=== PATIENT | female | born 1950 | race Caucasian/White ===

== ENCOUNTER 2018-04-03 00:22 | Outpatient (CLI) | payer MEDICARE, MEDICAID, SELFPAY ==
--- NOTE | 2018-04-03 12:00 | DI.MAMMO_ITS ---
SYMPTOM/DIAGNOSIS: SCREENING, Z12.31 MAMMOGRAMS: Mammograms were interpreted according to the usual protocol including computer analysis with CAD system, tomosynthesis and C view imaging. The breast tissue is of moderate radiodensity. A faint area of asymmetric increased density is noted in the upper outer quadrant of the left breast. There is no definite mass. There are no suspicious calcifications. There has been no significant interval change when compared with prior images. SUMMARY: No evidence of malignancy, category 1. Yearly screening mammography is recommended. Breast density, Category B. MQSA ASSESSMENT OF FINDINGS: Negative. Category 1. Patient will receive a letter notifying them of these results. BI-RADS category B. There are scattered areas of fibroglandular density.
== END 2018-04-03 00:42 ==
PROVIDERS: PCP Family Medicine; Visit Provider Family Medicine
DX: Z12.31 Encounter for screening mammogram for malignant neoplasm of breast (principal)
CPT/HCPCS: 77063; 77067

== ENCOUNTER 2018-08-11 08:00 | Day surgery (SDC) | payer MEDICARE, MEDICAID, SELFPAY ==
--- NOTE | 2018-08-10 17:24 | W.PIPPEYE ---
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 She notes significant difficulty with her vision at night. She notes significant foggy vision OU. She was noted to have bilateral nuclear and cortical cataracts. The option of cataract surgery was offered to the patient and she wished to proceed. NOTE: The Chief Complaint, HPI, Past Medical History, Past Surgical History, Family History, Social History, Medications, and complete Ophthalmic Exam with detailed Assessment and Plan have already been documented in the patient's outpatient ophthalmic record and are not covered again in detail here. [facility] Medical History Anatomical narrow angle, left eye (Acute) Cortical cataract of left eye (Acute) Nuclear sclerotic cataract of left eye (Acute) Surgical History Biopsy of breast (~1973) section Hysterectomy, Laproscopic Family History Mother Essential hypertension Heart disease Hyperlipidemia Stroke Father Heart disease Sister Essential hypertension Depression Hyperlipidemia Brother Essential hypertension Heart disease Hyperlipidemia Grandfather No problems noted. Grandfather No problems noted. Grandmother No problems noted. Grandmother No problems noted. niece No problems noted. Niece Neoplasm Sister No problems noted. Sister No problems noted. Sister Stroke Social History household members: other details: 2 highest education level completed: high school graduate current occupational status: retired pets and animals: No what type of physical activity do you participate in: walking frequency: 3-4 times per week duration: 30-45 minutes/day Smoking and Tabacco status: Former Tobacco Use quit date: 06/03/10 Pasive smoking exposure: Yes alcohol intake: current alcohol intake frequency: a few times a month substance use type: does not use tanvir/rastafari: Caodaism special tanvir needs: No Meds Home Medications Medication Instructions Recorded Confirmed Type celecoxib 200 mg capsule 200 mg PO DAILY PRN #90 cap 06/10/18 08/06/18 Rx oxybutynin chloride 5 mg PO HS 08/06/18 08/06/18 History Allergies Allergy/AdvReac Type Severity Reaction Status Date / Time No Known Allergies Allergy Unverified 08/06/18 16:24 Exam OCULAR EXAM:: Most recent ocular examination revealed corrected visual acuity of 20/25 OD, 20/40 OS. Intraocular pressure is 16 OD, 15 OS. Extraocular motility is normal. Pupils equal, round, and reactive without afferent pupillary defect slit-lamp examination is significant for very narrow angles OU with a shallow anterior chambers. 2+ nuclear/cortical cataract OU. Funduscopic examination shows disc cupping of 0.25 OD 0.3 OS with good color. The optic nerves have good perfusion and normal color. The retinal vasculature is normal without significant tortuosity or abnormality. The maculas are normal in appearance with normal contour and foveal reflex appropriate for age. The peripheral retina and vitreous are normal. BRIGHTNESS ACUITY TESTING (BAT):: issued a brightness acuity testing of the left eye off is 20/40. Low is 20/25. Medium is 20/25. High is 20/40. Assessment and Plan (1) Nuclear sclerotic cataract of left eye: Current visit: No Status: Acute Assessment: Visually significant cataract, left eye. Plan: Cataract extraction with intraocular lens implantation, left eye (2) Cortical cataract of left eye: Current visit: No Status: Acute Assessment: Visually significant cataract, left eye. Plan: Cataract extraction with intraocular lens implantation, left eye (3) Anatomical narrow angle, left eye: Current visit: No Status: Acute Assessment: High hyperopia with narrow anterior chamber angle, left eye, with shallow anterior chamber Plan: Preop treatment with IV mannitol Note: NOTE:: The details of the planned surgery, including the risks, indications,limitations,expectations,outcome and possible complications were explained to the patient. The patient understands the complications including, but not limited to: infection, hemorrhage, posterior dislocation of the lens or nuclear fragments which may require the intervention of a vitreoretinal surgeon, possible loss of the eye, or from anesthetic complications. The patient has been made aware of the option of not having surgery, that vision following surgery may not be equal to that prior to surgery, and that the planned surgery may not achieve the intended results. Following this discussion, which the patient appeared to understand, the patient wishes to proceed with cataract surgery with lens implantation of the affected eye to improve and maximize vision.
--- NOTE | 2018-08-10 18:26 | W.PM.DSUDISC ---
Discharge Plan Disposition Patient Disposition: HOME Condition: Stable Discharge Details Attending Provider: Irvin Baxter Primary Care Provider: Fredy Starks Home Meds and New Rx's Prescriptions: No Action celecoxib 200 mg capsule 200 mg PO DAILY PRN (Reason: pain) Qty: 90 RF: 4 oxybutynin chloride 5 MG tablet 5 mg PO HS RF: 0 Discharge Instructions Stand Alone Forms: Post-op Topical Cataract, Joyce Jackson (DSU) Discharge Orders Discharge Orders: Discharge Order (Routine); Ordered 08/11/18 Ordered By: Irvin Baxter DS: Diagnosis Discharge Diagnosis (1) Status post cataract extraction and insertion of intraocular lens of left eye: Status: Chronic
[2018-08-11 08:16] VITALS: BP 132/85; PULSE 72; RESP 16; TEMP 36.5; O2SAT 98
[2018-08-11] MEDS: Tetracaine 0.5% 4 ML BTL OS ×4 (08:26→10:17)
[2018-08-11] MEDS: Tropicam./Phenyleph. (1/2.5%) 5 ML BTL OS ×3 (08:26→10:10)
[2018-08-11] MEDS: Povidone-Iodine Ophth 30 ML BTL ×2 (10:17→10:47)
[2018-08-11] MEDS: Lidocaine 2% Jelly 6 ML SYR (10:17)
[2018-08-11] MEDS: Balanced Salt Soln.-PLUS 500 ML BAG (10:23)
[2018-08-11] MEDS: Lidocaine 1% Pres-Free 5 ML VIAL (10:23)
[2018-08-11] MEDS: Duovisc Viscoelastic System EACH 1 EACH (10:24)
[2018-08-11] MEDS: Lactated Ringers 1,000 ML 30 ML IV (10:46)
--- NOTE | 2018-08-11 10:56 | W.PM.OP ---
Date of service: 08/11/18 Time of Service: 10:56 Operative Note PRE-OP DIAGNOSIS: Cataract, left eye POST-OP DIAGNOSIS: same PROCEDURE: Cataract extraction using phacoemulsification with intraocular lens implant, left eye SURGEON: Irvin Baxter ANESTHESIA: MAC and local (sub-tenon's anesthetic infiltration) PATHOLOGY: none sent COMPLICATIONS: None Patient was transported to: same day Patient's condition: stable Implants: Rocky and Rocky Vision / [employer] Tecnis ZCB00 Indications: Progressive decreased vision due to cataract, left eye Procedure Description: CATARACT SURGERY OPERATIVE REPORT PREOPERATIVE DIAGNOSIS: Nuclear/cortical cataract, left eye Short axial length, high hyperopia, shallow anterior chamber, narrow angles, left eye POSTOPERATIVE DIAGNOSIS: Same OPERATION: Cataract extraction using phacoemulsification with posterior chamber intraocular lens implant, left eye. IOL: IOL Distributed Generation Project Manager/Model: J&J Vision / SANCHEZ Tecnis ZCB00 IOL Power: + 30.5 diopters IOL Serial Number: [id number] Optic Diameter: 6.0mm Haptic/Overall Diameter: 13.0mm PHACO INFO: Raymond GigaSpacesurion Vision System with OZil and Active Fluidics Cumulative Dispersed Energy (CDE): 5.86 seconds SURGEON: Irvin Baxter MD, CHRIS ANESTHESIA: Monitored Anesthesia Care (MAC), with local sub-tenon's anesthetic infiltration COMPLICATIONS: None SPECIMENS: None INDICATIONS FOR PROCEDURE: Patient is a 68-year-old lady with history of high hyperopia who has developed significant nuclear and cortical cataracts in both eyes. She has short axial length with narrow angles and shallow anterior chamber. The option of cataract surgery was offered to the patient and she wished to proceed. She was treated preoperatively with 30 g of mannitol IV PROCEDURE: The correct surgical eye was identified and marked as the left eye and the pupil was dilated in the preoperative area using mydriatics and cycloplegics. The dilated pupil size was 7.0 mm. Mannitol 30 g in a 20% solution was administered IV approximately 30 minutes prior to surgery. Oral sedation was administered in the form of an Imprimis MKO Melt (midazolam 3mg/ketamine 25mg/ondansetron 2mg). The patient was brought to the operating room where cardiopulmonary monitoring was instituted and surgical time-out was performed, confirming the correct operative eye and IOL power. Topical anesthesia was administered and ophthalmic povidone-iodine 5% was instilled into the conjunctival fornices. Lidocaine gel was applied to the cornea and the aldo-ocular area was prepped with Betadine 10% solution and draped in the usual sterile fashion for intraocular surgery, including an aperture drape. A Tegaderm transparent film dressing was cut in half and used to cover the lashes and lid margins. Care was taken to sequester the lashes and lid margins under the Tegaderm dressing. A lid speculum was placed between the lids of the operative eye and the Julianna-Victor Hugo operating microscope was maneuvered into position. Parth scissors were then used to make a conjunctival buttonhole approximately 6mm posterior to the limbus in the inferonasal quadrant. Blunt dissection was carried out to expose bare sclera, and a blunt-tipped sub-tenon?s anesthesia cannula was introduced and passed posteriorly along the globe where non-preserved plain lidocaine was injected into posterior sub-Tenon?s space. A sideport knife was used to make a paracentesis port superior/superiortemporal, and the anterior chamber was filled with Viscoat. A 2.4mm keratome knife was used to create a half-thickness groove at the limbus and then to construct a three-plane near-clear corneal tunnel extending 2.0mm into clear cornea in the temporal position. . A flap was raised on the anterior capsule and capsulorhexis forceps were used to complete a continuous curvilinear capsulorhexis of 5.0 mm. Balanced salt solution was then used to perform cortical cleaving hydrodissection and nuclear hydrodelineation until the lens could be freely rotated within the capsular bag. The lens nucleus was then disassembled and removed within the capsular bag and iris plane using phacoemulsification. Residual cortical material was removed using the 45-degree angled silicone I/A tip with 0.3mm port. The posterior capsule was carefully polished to remove as much residual lens epithelial cells as safely possible. There was some adherent cortical strands nasally and superiorly which could not be removed even with polishing. The capsular bag was then inflated and the anterior chamber deepened with Provisc. The lens implant described above was inserted into the capsular bag using the SANCHEZ [place] Injector. A Kuglen hook was used to dial the IOL into position. Residual viscoelastic was then removed first from posterior to the IOL, then from the anterior chamber using the I/A handpiece. The lens implant was noted to center nicely within the capsular bag. The incisions were stromally hydrated, and the anterior chamber was reformed using BSS. Then 0.4cc of moxifloxacin 1.5mg/ml were injected into the capsular bag and anterior chamber. The incisions were checked with a Weck spear and found to be secure. Several drops of ophthalmic povidone-iodine 5% were then applied to the eye followed by two drops of Imprimis combination moxifloxacin/dexamethasone solution. The drapes were removed and a clear plastic protective eye shield was placed over the eye. The patient was then returned to Same Day Surgery in stable condition.
--- NOTE | 2018-08-11 11:00 | ROE_ITS ---
Date of service: 08/11/18 Time of Service: 10:56 Operative Note PRE-OP DIAGNOSIS: Cataract, left eye POST-OP DIAGNOSIS: same PROCEDURE: Cataract extraction using phacoemulsification with intraocular lens implant, left eye SURGEON: Irvin Baxter ANESTHESIA: MAC and local (sub-tenon's anesthetic infiltration) PATHOLOGY: none sent COMPLICATIONS: None Patient was transported to: same day Patient's condition: stable Implants: Rocky and Rocky Vision / [employer] Tecnis ZCB00 Indications: Progressive decreased vision due to cataract, left eye Procedure Description: CATARACT SURGERY OPERATIVE REPORT PREOPERATIVE DIAGNOSIS: Nuclear/cortical cataract, left eye Short axial length, high hyperopia, shallow anterior chamber, narrow angles, left eye POSTOPERATIVE DIAGNOSIS: Same OPERATION: Cataract extraction using phacoemulsification with posterior chamber intraocular lens implant, left eye. IOL: IOL Supervisor Metalizing/Model: J&J Vision / SANCHEZ Tecnis ZCB00 IOL Power: + 30.5 diopters IOL Serial Number: [id number] Optic Diameter: 6.0mm Haptic/Overall Diameter: 13.0mm PHACO INFO: Raymond Axial Biotechurion Vision System with OZil and Active Fluidics Cumulative Dispersed Energy (CDE): 5.86 seconds SURGEON: Irvin Baxter MD, CHRIS ANESTHESIA: Monitored Anesthesia Care (MAC), with local sub-tenon's anesthetic infiltration COMPLICATIONS: None SPECIMENS: None INDICATIONS FOR PROCEDURE: Patient is a 68-year-old lady with history of high hyperopia who has developed significant nuclear and cortical cataracts in both eyes. She has short axial length with narrow angles and shallow anterior chamber. The option of cataract surgery was offered to the patient and she wished to proceed. She was treated preoperatively with 30 g of mannitol IV PROCEDURE: The correct surgical eye was identified and marked as the left eye and the pupil was dilated in the preoperative area using mydriatics and cycloplegics. The dilated pupil size was 7.0 mm. Mannitol 30 g in a 20% solution was administered IV approximately 30 minutes prior to surgery. Oral sedation was administered in the form of an Imprimis MKO Melt (midazolam 3mg/ketamine 25mg/ondansetron 2mg). The patient was brought to the operating room where cardiopulmonary monitoring was instituted and surgical time-out was performed, confirming the correct operative eye and IOL power. Topical anesthesia was administered and ophthalmic povidone-iodine 5% was instilled into the conjunctival fornices. Lidocaine gel was applied to the cornea and the aldo-ocular area was prepped with Betadine 10% solution and draped in the usual sterile fashion for intraocular surgery, including an aperture drape. A Tegaderm transparent film dressing was cut in half and used to cover the lashes and lid margins. Care was taken to sequester the lashes and lid margins under the Tegaderm dressing. A lid speculum was placed between the lids of the operative eye and the Juilanna-Victor Hugo operating microscope was maneuvered into position. Parth scissors were then used to make a conjunctival buttonhole approximately 6mm posterior to the limbus in the inferonasal quadrant. Blunt dissection was carried out to expose bare sclera, and a blunt-tipped sub-tenon?s anesthesia cannula was introduced and passed posteriorly along the globe where non- preserved plain lidocaine was injected into posterior sub-Tenon?s space. A sideport knife was used to make a paracentesis port superior/superiortemporal, and the anterior chamber was filled with Viscoat. A 2.4mm keratome knife was used to create a half-thickness groove at the limbus and then to construct a three-plane near-clear corneal tunnel extending 2.0mm into clear cornea in the temporal position. . A flap was raised on the anterior capsule and capsulorhexis forceps were used to complete a continuous curvilinear capsulorhexis of 5.0 mm. Balanced salt solution was then used to perform cortical cleaving hydrodissection and nuclear hydrodelineation until the lens could be freely rotated within the capsular bag. The lens nucleus was then disassembled and removed within the capsular bag and iris plane using phacoemulsification. Residual cortical material was removed using the 45-degree angled silicone I/A tip with 0.3mm port. The posterior capsule was carefully polished to remove as much residual lens epithelial cells as safely possible. There was some adherent cortical strands nasally and superiorly which could not be removed even with polishing. The capsular bag was then inflated and the anterior chamber deepened with Provisc. The lens implant described above was inserted into the capsular bag using the SANCHEZ [place] Injector. A Kuglen hook was used to dial the IOL in to position. Residual viscoelastic was then removed first from posterior to the IOL, then from the anterior chamber using the I/A handpiece. The lens implant was noted to center nicely within the capsular bag. The incisions were stromally hydrated, and the anterior chamber was reformed using BSS. Then 0.4cc of moxifloxacin 1.5mg/ml were injected into the capsular bag and anterior chamber. The incisions were checked with a Weck spear and found to be secure. Several drops of ophthalmic povidone-iodine 5% were then applied to the eye followed by two drops of Imprimis combination moxifloxacin/dexamethasone solution. The drapes were removed and a clear plastic protective eye shield was placed over the eye. The patient was then returned to Same Day Surgery in stable condition.
[2018-08-11 11:25] VITALS: BP 144/80; PULSE 75; RESP 16; TEMP 36.5; O2SAT 95
== END 2018-08-11 11:30 | disposition home or self-care (01) ==
LOC: SUR 08:00
PROVIDERS: PCP Family Medicine; Visit Provider Ophthalmology
PROC: (CPT 66984; principal; 2018-08-11 11:15)
DX: H25.812 Combined forms of age-related cataract, left eye (principal); H52.02 Hypermetropia, left eye; H40.032 Anatomical narrow angle, left eye
CPT/HCPCS: 66984; V2632

== ENCOUNTER 2018-08-25 07:36 | Day surgery (SDC) | payer MEDICARE, MEDICAID, SELFPAY ==
--- NOTE | 2018-08-24 16:46 | W.PIPPEYE ---
History of Present Illness Chief Complaint: Progressive decreased vision, right eye Narrative: The patient is a 68-year-old lady with history of high hyperopia with narrow angles and cataracts. She presented with complaints of progressive decreased vision in both eyes at both distance and near. She notes glare and foggy vision. She was noted to have moderate nuclear and cortical cataracts with shallow anterior chambers and narrow angles. She underwent cataract surgery in the left eye on 08/11/2018, treated with preoperative mannitol. Postoperatively, she has regained uncorrected vision of 20/30 in the right eye, correctable to 20/20. She now presents for cataract surgery in the right eye. NOTE: The Chief Complaint, HPI, Past Medical History, Past Surgical History, Family History, Social History, Medications, and complete Ophthalmic Exam with detailed Assessment and Plan have already been documented in the patient's outpatient ophthalmic record and are not covered again in detail here. PFSH Medical History Anatomical narrow angle, left eye (Resolved) Cortical cataract of left eye (Resolved) Nuclear sclerotic cataract of left eye (Resolved) Surgical History Status post cataract extraction and insertion of intraocular lens of left eye (Chronic 08/11/18) Biopsy of breast (~1973) section Hysterectomy, Laproscopic Family History Mother Essential hypertension Heart disease Hyperlipidemia Stroke Father Heart disease Sister Essential hypertension Depression Hyperlipidemia Brother Essential hypertension Heart disease Hyperlipidemia Grandfather No problems noted. Grandfather No problems noted. Grandmother No problems noted. Grandmother No problems noted. niece No problems noted. Niece Neoplasm Sister No problems noted. Sister No problems noted. Sister Stroke Social History Smoking/Tobacco Use Status: Former Tobacco Use Quit Date: 06/03/10 Alcohol Intake: current Alcohol Intake frequency: a few times a month Drug use: Never Substance use type: does not use Household members: other Details: 2 Pets and animals: No What type of physical activity do you participate in: walking Duration: 30-45 minutes/day Frequency: 3-4 times per week Kelsie/Confucianism: Uatsdin Special kelsie needs: No Meds Home Medications Medication Instructions Recorded Confirmed Type celecoxib 200 mg capsule 200 mg PO DAILY PRN #90 cap 06/10/18 08/06/18 Rx oxybutynin chloride 5 mg PO HS 08/06/18 08/06/18 History Allergies Allergy/AdvReac Type Severity Reaction Status Date / Time No Known Allergies Allergy Unverified 08/06/18 16:24 Exam OCULAR EXAM:: Most recent ocular examination is significant for corrected visual acuity of 20/30 OD, 20/20 OS. Pupils equal, round, and reactive without afferent pupillary defect extraocular motility is normal, intraocular pressure is 16 OD, 15 OS. Slit-lamp examination shows shallow anterior chamber with very narrow angles in the right eye. 2+ nuclear with 2+ cortical cataract is present OD. In the left eye there is a well-positioned PCIOL, with some residual posterior capsular plaque nasally. Funduscopic examination reveals disc cupping of 0.25 OD 0.3 OS with normal vessels. The vessels, macula, peripheral retina and vitreous are normal OU. BRIGHTNESS ACUITY TESTING (BAT):: Brightness acuity testing of the right eye off is 20/25. Low is 20/25. Medium is 20/30. High is 20/40. Assessment and Plan (1) Cortical cataract of right eye: Current visit: No Status: Acute Assessment: Visually significant cataract, right eye. Plan: Cataract extraction with intraocular lens implantation, right eye (2) Nuclear sclerotic cataract of right eye: Current visit: No Status: Acute Assessment: Visually significant cataract, right eye. Plan: Cataract extraction with intraocular lens implantation, right eye Note: NOTE:: The details of the planned surgery, including the risks, indications,limitations,expectations,outcome and possible complications were explained to the patient. The patient understands the complications including, but not limited to: infection, hemorrhage, posterior dislocation of the lens or nuclear fragments which may require the intervention of a vitreoretinal surgeon, possible loss of the eye, or from anesthetic complications. The patient has been made aware of the option of not having surgery, that vision following surgery may not be equal to that prior to surgery, and that the planned surgery may not achieve the intended results. Following this discussion, which the patient appeared to understand, the patient wishes to proceed with cataract surgery with lens implantation of the affected eye to improve and maximize vision.
--- NOTE | 2018-08-24 19:37 | W.PM.DSUDISC ---
Discharge Plan Disposition Patient Disposition: HOME Condition: Stable Discharge Details Attending Provider: Irvin Baxter Primary Care Provider: Fredy Starks Home Meds and New Rx's Prescriptions: No Action celecoxib 200 mg capsule 200 mg PO DAILY PRN (Reason: pain) Qty: 90 RF: 4 oxybutynin chloride 5 MG tablet 5 mg PO HS RF: 0 Discharge Instructions Stand Alone Forms: Post-op Topical Cataract, Joyce Jackson (DSU) Discharge Orders Discharge Orders: Discharge Order (Routine); Ordered 08/25/18 Ordered By: Irvin Baxter DS: Diagnosis Discharge Diagnosis (1) Cortical cataract of right eye: Status: Resolved (2) Nuclear sclerotic cataract of right eye: Status: Resolved (3) Status post cataract extraction and insertion of intraocular lens of right eye: Status: Chronic
--- NOTE | 2018-08-24 19:39 | W.PM.OP ---
Date of service: 08/25/18 Time of Service: 09:58 Operative Note PRE-OP DIAGNOSIS: Cataract, right eye PROCEDURE: Cataract extraction using phacoemulsification with intraocular lens implant, right eye SURGEON: Irvin Baxter ANESTHESIA: MAC and local (sub-tenon's anesthetic infiltration) ESTIMATED BLOOD LOSS: 0 PATHOLOGY: none sent COMPLICATIONS: None Patient was transported to: same day Patient's condition: stable Implants: [employer] / [employer] Tecnis ZCB00 intraocular lens Indications: Progressive decreased vision due to cataract, right eye Procedure Description: CATARACT SURGERY OPERATIVE REPORT PREOPERATIVE DIAGNOSIS: Nuclear/cortical cataract, right eye Short axial length, high hyperopia, shallow anterior chamber, narrow angles, right eye POSTOPERATIVE DIAGNOSIS: Same OPERATION: Cataract extraction using phacoemulsification with posterior chamber intraocular lens implant, right eye. IOL: IOL Office Assistance/Model: [employer] / SANCHEZ Tecnis ZCB00 IOL Power: + 29.0 diopters IOL Serial Number: [id number] Optic Diameter: 6.0mm Haptic/Overall Diameter: 13.0mm PHACO INFO: Raymond Telirisurion Vision System with OZil and Active [employer]uidics Cumulative Dispersed Energy (CDE): 4.9 seconds SURGEON: Irvin Baxter MD, CHRIS ANESTHESIA: Monitored Anesthesia Care (MAC), with local sub-tenon's anesthetic infiltration COMPLICATIONS: None SPECIMENS: None INDICATIONS FOR PROCEDURE: The patient is a 68-year old lady with history of high hyperopia with short axial length and narrow anterior chamber angles who has developed symptomatic bilateral nuclear and cortical cataracts. She was significantly symptomatic that she desired cataract surgery and attempt to improve and maximize her vision. She underwent cataract surgery in the left eye on 08/11/2018, and has done well postoperatively. She now has significant anisometropia and presents for removal of symptomatic cataract in the right eye. Preoperatively, she was treated with mannitol 30 g IV to reduce vitreous volume and deep in the anterior chamber. PROCEDURE: The correct surgical eye was identified and marked as the right eye and the pupil was dilated in the preoperative area using mydriatics and cycloplegics. The dilated pupil size was 6.5 mm. Oral sedation was administered in the form of an Imprimis MKO Melt (midazolam 3mg/ketamine 25mg/ondansetron 2mg). The patient was brought to the operating room where cardiopulmonary monitoring was instituted and surgical time-out was performed, confirming the correct operative eye and IOL power. Topical anesthesia was administered and ophthalmic povidone-iodine 5% was instilled into the conjunctival fornices. Lidocaine gel was applied to the cornea and the aldo-ocular area was prepped with Betadine 10% solution and draped in the usual sterile fashion for intraocular surgery, including an aperture drape. A Tegaderm transparent film dressing was cut in half and used to cover the lashes and lid margins. Care was taken to sequester the lashes and lid margins under the Tegaderm dressing. A lid speculum was placed between the lids of the operative eye and the [facility] [employer] operating microscope was maneuvered into position. Parth scissors were then used to make a conjunctival buttonhole approximately 6mm posterior to the limbus in the inferonasal quadrant. Blunt dissection was carried out to expose bare sclera, and a blunt-tipped sub-tenon?s anesthesia cannula was introduced and passed posteriorly along the globe where non-preserved plain lidocaine was injected into posterior sub-Tenon?s space. A sideport knife was used to make a paracentesis port inferiortemporally, and the anterior chamber was filled with Viscoat. A 2.4mm keratome knife was used to create a half-thickness groove at the limbus and then to construct a three-plane near-clear corneal tunnel extending 2.0mm into clear cornea in the superiortemporal position. . A flap was raised on the anterior capsule and capsulorhexis forceps were used to complete a continuous curvilinear capsulorhexis of 5.0 mm. The capsule was noted to be quite thin with a shallow anterior chamber. Balanced salt solution was then used to perform cortical cleaving hydrodissection and nuclear hydrodelineation until the lens could be freely rotated within the capsular bag. The lens nucleus was then disassembled and removed within the capsular bag and iris plane using phacoemulsification. Residual cortical material was removed using the I/A handpiece. The posterior capsule was carefully polished to remove as much residual lens epithelial cells as safely possible. There were some residual adherent cortical strands which could not be safely removed. The capsular bag was then inflated and the anterior chamber deepened with Provisc. The lens implant described above was inserted into the capsular bag using the SANCHEZ [place] Injector. A Kuglen hook was used to dial the IOL into position. Residual viscoelastic was then removed first from posterior to the IOL, then from the anterior chamber using the I/A handpiece. The lens implant was noted to center nicely within the capsular bag. The incisions were stromally hydrated, and the anterior chamber was reformed using BSS. Then 0.4cc of moxifloxacin 1.5mg/ml were injected into the capsular bag and anterior chamber. The incisions were checked with a Weck spear and found to be secure. Several drops of ophthalmic povidone-iodine 5% were then applied to the eye followed by two drops of Imprimis combination moxifloxacin/dexamethasone solution. The drapes were removed and a clear plastic protective eye shield was placed over the eye. The patient was then returned to [facility] in stable condition.
[2018-08-25 07:56] VITALS: BP 165/87; PULSE 74; RESP 16; TEMP 36.4; O2SAT 16
[2018-08-25] MEDS: Tropicam./Phenyleph. (1/2.5%) 5 ML BTL OD ×3 (08:14→08:28)
[2018-08-25] MEDS: Tetracaine 0.5% 4 ML BTL OD ×4 (08:14→09:20)
[2018-08-25] MEDS: Duovisc Viscoelastic System EACH 1 EACH (09:20)
[2018-08-25] MEDS: Balanced Salt Soln.-PLUS 500 ML BAG (09:20)
[2018-08-25] MEDS: Povidone-Iodine Ophth 30 ML BTL (09:20)
[2018-08-25] MEDS: Lidocaine 1% Pres-Free 5 ML VIAL (09:20)
[2018-08-25] MEDS: Lidocaine 2% Jelly 6 ML SYR (09:20)
[2018-08-25 10:20] VITALS: BP 147/78; PULSE 70; RESP 14; TEMP 36.2; O2SAT 96
== END 2018-08-25 10:30 | disposition home or self-care (01) ==
LOC: SUR 07:37
PROVIDERS: PCP Family Medicine; Visit Provider Ophthalmology
PROC: (CPT 66984; principal; 2018-08-25 10:00)
DX: H25.811 Combined forms of age-related cataract, right eye (principal); H52.01 Hypermetropia, right eye; H40.031 Anatomical narrow angle, right eye; Z98.42 Cataract extraction status, left eye; Z96.1 Presence of intraocular lens
CPT/HCPCS: 66984; V2632

== ENCOUNTER 2020-03-04 02:01 | Outpatient (CLI) | payer MEDICARE, SELFPAY ==
[2020-03-04 13:19] LABS: Anion Gap 8.1 mmol/L (3-11); BUN 22 mg/dL (7-18); CO2 25.9 mmol/L (21.0-32.0); CREATININE 0.62 mg/dL (0.55-1.02); Calcium 9.1 mg/dL (8.5-10.1); Calculated LDL 187 mg/dL (<100); Chloride 106 mmol/L (98-107); Cholesterol 281 mg/dL (<200); Glucose 105 mg/dL (74-106); HDL Cholesterol 53 mg/dL (40-60); Potassium 4.2 mmol/L (3.5-5.1); Sodium 140 mmol/L (136-145); Triglyceride 206 mg/dL (<150)
== END 2020-03-04 02:21 ==
PROVIDERS: PCP Nurse Practitioner; Visit Provider Nurse Practitioner
DX: E78.5 Hyperlipidemia, unspecified (principal)
CPT/HCPCS: 36415; 80048; 80061

== ENCOUNTER 2020-06-06 02:07 | Outpatient (CLI) | payer MEDICARE, SELFPAY ==
--- NOTE | 2020-06-06 08:45 | DI.MAMMO_ITS ---
EXAM: MG MAMMO SCREENING CLINICAL HISTORY: screening,Z12.39. TECHNIQUE: Bilateral full field digital CC and MLO mammographic images were obtained with 3D tomosyn thesis and utilizing computer aided detection (CAD). COMPARISON: Prior mammograms dating back to 2011, the most recent being April 2018. FINDINGS: There are no CAD designations. Asymmetric tissue laterally in the left breast is unchanged from prior studies. There are no new spi culated masses nor malignant-appearing microcalcification in either breast. There is no significant architectural distortion nor skin thickening-retraction. IMPRESSION: No radiographic evidence of malignancy. BI-RADS Category 1 - Negative Breast Density - Category B - Scattered areas of fibroglandular density Breast density Category C or D implies that the patient has dense breast tissue. Dense breast tissue can make it harder to find cancer on a mammogram. Dense breast tissue is also associated with an incr eased risk of breast cancer. This information about the result of the mammogram report was provided to the patient to raise their awareness. Use this report when you speak with the patient about their risks for breast cancer, which includes their family history. At that time, you may recommend additional screening tests (Ultrasoun d or MRI) as these tests may add significant information. A negative radiographic report should not delay biopsy if a dominant or clinically suspicious mass is present. Up to ten percent of cancers are not identified on mammography. A negative report may reinforce clinical impression. Adenosis and dense breasts may obscure an underlying neoplasm. False positive reports average 6 to 10%. Patient will receive a letter notifying them of these results.
== END 2020-06-06 02:27 ==
PROVIDERS: PCP Nurse Practitioner; Visit Provider Nurse Practitioner
DX: Z12.31 Encounter for screening mammogram for malignant neoplasm of breast (principal); R92.8 Other abnormal and inconclusive findings on diagnostic imaging of breast
CPT/HCPCS: 77063; 77067

== ENCOUNTER 2020-10-25 09:13 | Outpatient (CLI) | payer MEDICARE, SELFPAY ==
[2020-10-25 12:50] LABS: Calculated LDL 107 mg/dL (<100); Cholesterol 192 mg/dL (<200); HDL Cholesterol 57 mg/dL (40-60); Triglyceride 143 mg/dL (<150)
== END 2020-10-25 09:14 | disposition home or self-care (01) ==
PROVIDERS: PCP Nurse Practitioner; Visit Provider Nurse Practitioner
DX: E78.5 Hyperlipidemia, unspecified (principal)
CPT/HCPCS: 36415; 80061

== ENCOUNTER 2021-04-20 19:01 | Outpatient (REF) | payer MEDICARE, SELFPAY ==
[2021-04-22 19:27] LABS: COVID-19 RT-PCR UVMMC Result Positive (Negative)
== END 2021-04-20 19:02 | disposition home or self-care (01) ==
LOC: LBN 19:01
PROVIDERS: PCP Nurse Practitioner; Visit Provider Nurse Practitioner
DX: Z20.822 Contact with and (suspected) exposure to COVID-19 (principal)
CPT/HCPCS: U0003

== ENCOUNTER 2021-11-02 02:45 | Outpatient (CLI) | payer MEDICARE, SELFPAY ==
[2021-11-02 12:46] LABS: Hemoglobin A1C 6.3 % (<5.7)
== END 2021-11-02 02:46 | disposition home or self-care (01) ==
LOC: LOS 02:48
PROVIDERS: PCP Nurse Practitioner; Visit Provider Nurse Practitioner
DX: R73.09 Other abnormal glucose (principal)
CPT/HCPCS: 36415; 83036

== ENCOUNTER → 2022-03-15 01:45 | Outpatient (CLI) | payer MEDICARE, MEDICAID, SELFPAY ==
--- NOTE | 2022-03-15 08:15 | DI.DEXA_ITS ---
Exam(s) XR DEXA BONE DENSITY W/WO NICOLE EXAM: XR DEXA BONE DENSITY W/WO NICOLE CLINICAL HISTORY: screen osteoporosis Z78.0 POSTMENOPAUSAL TECHNIQUE: COMPARISON: Comparison examination is 11/07/2017. FINDINGS: Lateral Spine Image: Unremarkable. No compression deformities identified. Left hip: Total T-Score: -0.3. This compares to -0.5 on the prior examination. Total Z-Score: 1.2 T- and Z-scores: Within normal limits. Lumbar Spine: Total T-Score: 0.0. This compares to -0.5 on the prior examination. Total Z-Score: 2.2 T- and Z-scores: Within normal limits. IMPRESSION: No evidence of osteoporosis.
--- NOTE | 2022-03-15 08:15 | DI.MAMMO_ITS ---
Exam(s) MAMMO SCREENING EXAM: MAMMO SCREENING CLINICAL HISTORY: screening Z12.39 SCREENING FOR BREAST CANCER TECHNIQUE: Bilateral full field digital CC and MLO mammographic images were obtained with 3D tomosyn thesis and utilizing computer aided detection (CAD). COMPARISON: Available for comparison. FINDINGS: Masses/Architectural Distortion: None seen. Microcalcifications: No suspicious pleomorphic-type are seen. Skin Thickening/Nipple Retraction: None. IMPRESSION: 1. No significant interval change with no specific features of malignancy noted. 2. Unless there is more urgent need, screening mammography is recommended, as per [employer] guidelines. BI-RADS Category 1 - Negative Breast Density - Category B - Scattered areas of fibroglandular density Breast density category C or D implies that the patient has dense breast tissue. Dense breast tissue is very common and is not abnormal but dense breast tissue can make it harder to find cancer on a ma mmogram. Also, dense breast tissue may increase their breast cancer risk. This information about the result of the mammogram report was provided to the patient to raise their awareness. Use this report when you speak with the patient about their risks for breast cancer, which includes their family hist ory. At that time, you may recommend for more screening tests (Ultrasound or MRI) as they might be us eful based on their risk. A negative radiographic report should not delay biopsy if a dominant or clinically suspicious mass is present. Up to ten percent of cancers are not identified on mammography. A negative report may reinforce clinical impression. Adenosis and dense breasts may obscure an underlying neoplasm. False positive reports average 6 to 10%. Patient will receive a letter notifying them of these results.
== END ==
PROVIDERS: PCP Nurse Practitioner; Visit Provider Nurse Practitioner
DX: Z12.31 Encounter for screening mammogram for malignant neoplasm of breast (principal); Z78.0 Asymptomatic menopausal state; Z13.820 Encounter for screening for osteoporosis
CPT/HCPCS: 77063; 77067; 77080

== ENCOUNTER 2022-05-25 00:56 | Outpatient (CLI) | payer MEDICARE, MEDICAID, SELFPAY ==
[2022-05-25 12:48] LABS: Hemoglobin A1C 5.9 % (<5.7)
[2022-05-25 12:55] LABS: ALT 12 U/L (14-59); AST 23 U/L (15-37); Albumin 4.3 g/dL (3.4-5.0); Alkaline Phosphatase 67 U/L (46-116); Anion Gap 7.6 mmol/L (3-11); BUN 26 mg/dL (7-18); Bilirubin, Total 0.4 mg/dL (0.2-1.0); CO2 29.4 mmol/L (21.0-32.0); CREATININE 0.7 mg/dL (0.55-1.02); Calcium 9.4 mg/dL (8.5-10.1); Calculated LDL 74 mg/dL (<100); Chloride 105 mmol/L (98-107); Cholesterol 142 mg/dL (<200); Estimated GFR 92.98 (mL/min/1.73m2); Glucose 116 mg/dL (74-106); HDL Cholesterol 52 mg/dL (40-60); Potassium 3.9 mmol/L (3.5-5.1); Sodium 142 mmol/L (136-145); Total Protein 7.4 g/dL (6.4-8.2); Triglyceride 84 mg/dL (<150)
== END 2022-05-25 00:57 | disposition home or self-care (01) ==
LOC: LOS 00:56
PROVIDERS: PCP Nurse Practitioner Family; Visit Provider Nurse Practitioner Family
DX: E78.5 Hyperlipidemia, unspecified (principal); R73.03 Prediabetes
CPT/HCPCS: 36415; 80053; 80061; 82043; 82570; 83036

== ENCOUNTER 2022-06-29 01:07 | Outpatient (CLI) | payer MEDICARE, MEDICAID, SELFPAY ==
[2022-06-29 12:30] LABS: Hemoglobin A1C 5.9 % (<5.7)
[2022-06-29 12:41] LABS: ALT 11 U/L (14-59); AST 21 U/L (15-37); Albumin 4.4 g/dL (3.4-5.0); Alkaline Phosphatase 73 U/L (46-116); BUN 28 mg/dL (7-18); Bilirubin, Total 0.6 mg/dL (0.2-1.0); CREATININE 0.7 mg/dL (0.55-1.02); Calcium 10.1 mg/dL (8.5-10.1); Calculated LDL 93 mg/dL (<100); Chloride 104 mmol/L (98-107); Cholesterol 160 mg/dL (<200); Estimated GFR 92.41 (mL/min/1.73m2); Glucose 114 mg/dL (74-106); HDL Cholesterol 55 mg/dL (40-60); Potassium 4.5 mmol/L (3.5-5.1); Sodium 139 mmol/L (136-145); Total Protein 7.5 g/dL (6.4-8.2); Triglyceride 62 mg/dL (<150)
[2022-06-29 13:29] LABS: COMMENT (LAB VIEW ONLY) 100.92 mg/dL; Microalb ug/mg Crea 11.5 ug/mg Cr
== END 2022-06-29 01:08 | disposition home or self-care (01) ==
LOC: LOS 01:08
PROVIDERS: PCP Nurse Practitioner Family; Visit Provider Nurse Practitioner Family
DX: I10 Essential (primary) hypertension (principal); E78.5 Hyperlipidemia, unspecified; R73.03 Prediabetes
CPT/HCPCS: 36415; 80053; 80061; 82043; 82570; 83036

== ENCOUNTER → 2023-06-14 02:19 | Outpatient (CLI) | payer MEDICARE, MEDICAID, SELFPAY ==
--- NOTE | 2023-06-14 07:45 | DI.MAMMO_ITS ---
Exam(s) MAMMO SCREENING EXAM: MAMMO SCREENING CLINICAL HISTORY: screening,Z12.39 TECHNIQUE: Bilateral full field digital CC and MLO mammographic images were obtained with 3D tomosyn thesis and utilizing computer aided detection (CAD). COMPARISON: Available for comparison. FINDINGS: Masses/Architectural Distortion: None seen. Microcalcifications: No suspicious pleomorphic-type are seen. Skin Thickening/Nipple Retraction: None. IMPRESSION: 1. No significant interval change with no specific features of malignancy noted. 2. Unless there is more urgent need, screening mammography is recommended, as per [employer] guidelines. BI-RADS Category 1 - Negative Breast Density - Category B - Scattered areas of fibroglandular density Breast density category C or D implies that the patient has dense breast tissue. Dense breast tissue is very common and is not abnormal but dense breast tissue can make it harder to find cancer on a ma mmogram. Also, dense breast tissue may increase their breast cancer risk. This information about the result of the mammogram report was provided to the patient to raise their awareness. Use this report when you speak with the patient about their risks for breast cancer, which includes their family hist ory. At that time, you may recommend for more screening tests (Ultrasound or MRI) as they might be us eful based on their risk. A negative radiographic report should not delay biopsy if a dominant or clinically suspicious mass is present. Up to ten percent of cancers are not identified on mammography. A negative report may reinforce clinical impression. Adenosis and dense breasts may obscure an underlying neoplasm. False positive reports average 6 to 10%. Patient will receive a letter notifying them of these results.
== END ==
PROVIDERS: PCP Nurse Practitioner Family; Visit Provider Nurse Practitioner Family
DX: Z12.31 Encounter for screening mammogram for malignant neoplasm of breast (principal)
CPT/HCPCS: 77063; 77067